=== PATIENT | male | born 1980 | race African-American/Black ===

== ENCOUNTER 2021-11-19 22:59 | Emergency (ER) | payer OTHER ==
[~2021-11-19] VITALS: Ht 172.7 cm; Wt 84.4 kg
[2021-11-19 23:11] VITALS: BP 131/80
--- NOTE | 2021-11-19 23:12 | NUR ---
TRINH KWAW IN TRIAGE EXAMINING PATIENT.
[2021-11-19] MEDS ORDERED: BENZ200C4 PO (23:17)
[2021-11-19] MEDS ORDERED: AMOX1TAB8 PO (23:17)
--- NOTE | 2021-11-19 23:20 | NUR ---
SEEN BY TRINH LARSON NO NURSING INTERVENTIONS NEEDED FOR PATIENT. PATIENT DISCHARGED BY TRINH LARSON.
== END 2021-11-19 23:20 | disposition home or self-care (01) ==
LOC: MED 22:59
DX: J20.9 Acute bronchitis, unspecified (principal); F20.9 Schizophrenia, unspecified; F32.9 Major depressive disorder, single episode, unspecified; Z79.899 Other long term (current) drug therapy; Z79.2 Long term (current) use of antibiotics
CPT/HCPCS: 99283

== ENCOUNTER 2021-11-24 20:21 | Emergency (ER) | payer OTHER ==
[~2021-11-24] VITALS: Ht 172.7 cm; Wt 83.0 kg
[~2021-11-24 20:21] MED LIST: AMOX1TAB8 PO; BENZ200C4 PO
[2021-11-24 20:30] VITALS: BP 127/67
--- NOTE | 2021-11-24 20:52 | NUR ---
PT TAKEN TO BED 12 WITH CAREGIVER
--- NOTE | 2021-11-24 20:55 | NUR ---
41 YO M BIB CAREGIVER WITH C/C OF cough x 1 week. Per family reported, had cough, came and seen by ERMD on 11/19/21, Dx Acute Bronchitis, Patient had cough and chest pain, no relief. reports 10/ chest pain s/p coughing. PMHx: Schizophrenia
--- NOTE | 2021-11-24 22:29 | NUR ---
Dr. Florence examining patient.
--- NOTE | 2021-11-24 23:22 | NUR ---
pt is awake and alert, sitting up in bed. caregiver at bedside. all needs ,met at this time. bed locked in lowest position, side rails x2 for safety
[2021-11-24] MEDS ORDERED: ALBU0.0912 IH (23:42)
[2021-11-24] MEDS ORDERED: PRED20TA5 PO (23:42)
[2021-11-25 00:07] VITALS: BP 125/82
--- NOTE | 2021-11-25 00:07 | NUR ---
Patient discharged with v/s stable. Written and verbal after care instructions given and explained. Patient alert, oriented and verbalized understanding of instructions. Ambulatory with by caregiver. All questions addressed prior to discharge. ID band removed. Patient advised to follow up with PMD. Rx of prednisone and albuterol given. Patient educated on indication of medication including possible reaction and side effects. Opportunity to ask questions provided and answered.
== END 2021-11-25 00:07 | disposition home or self-care (01) ==
LOC: MED 20:21
DX: J20.9 Acute bronchitis, unspecified (principal); F20.9 Schizophrenia, unspecified
CPT/HCPCS: 99283

== ENCOUNTER 2022-04-10 22:25 | Emergency (ER) | payer OTHER ==
[~2022-04-10] VITALS: Ht 172.7 cm; Wt 79.8 kg
[~2022-04-10 22:25] MED LIST changes: +ALBU0.0912 IH; +PRED20TA5 PO
[2022-04-10 23:06] VITALS: BP 111/89
--- NOTE | 2022-04-11 03:15 | NUR ---
Patient taken to bed 5.
--- NOTE | 2022-04-11 03:18 | NUR ---
Dr. Malhotra examining patient.
[2022-04-11] MEDS ORDERED: diphenhydrAMINE 50 MG CAP PO ONE (03:25)
[2022-04-11] MEDS ORDERED: BENZTROPINE 2 MG/2 ML AMP IM ONE (03:25)
--- NOTE | 2022-04-11 03:40 | NUR ---
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 DENIES PAIN CAREGIVER STATES TREMORS GOTTEN WORSE WITHIN A WEEK. PT HAS MILD RETARDTION A&OX4 CAREGIVER AT BEDSIDE. PT SITTING ON SIDE OF BED. BED AT LOWEST POSITION NKDA BIOPOLAR DEPRESSION ANXIETY PARANOIA SCHIZO TOURETTE SYNDROME MILD RETARDATION
[2022-04-11] MEDS ORDERED: DIPH25TA53 PO (04:00)
--- NOTE | 2022-04-11 04:09 | NUR ---
TREMORS HAVE SUBSIDED AFTER MEDICATION . PT TOLERATED WELL.
--- NOTE | 2022-04-11 04:20 | NUR ---
Patient discharged with v/s stable. Written and verbal after care instructions given and explained. Patient alert, oriented and verbalized understanding of instructions. Ambulatory with by caregiver. All questions addressed prior to discharge. ID band removed. Patient advised to follow up with PMD. Rx of BENADRYL given.
--- NOTE | 2022-04-11 04:21 | NUR ---
The patient's care was reviewed and supervised by Priya Alejandro RN.
== END 2022-04-11 04:20 | disposition home or self-care (01) ==
LOC: MED 22:25
DX: G24.9 Dystonia, unspecified (principal); M79.601 Pain in right arm; F32.9 Major depressive disorder, single episode, unspecified; F41.9 Anxiety disorder, unspecified; F20.9 Schizophrenia, unspecified; Z79.899 Other long term (current) drug therapy
CPT/HCPCS: 96372; 99283; J0515; Q0163